=== PATIENT | male | born 1950 | race Caucasian/White ===

== ENCOUNTER 2016-07-16 02:29 | Inpatient (IN) | payer MEDICARE, OTHER ==
[~2016-07-16] VITALS: Ht 170.2 cm; Wt 67.6 kg
[~2016-07-16 02:29] MED LIST: CETIRIZINE HCL10 MG PO; COMBIVENT0.074 GM/I INH; ISOSORBIDE MONO30 MG PO; LANTUS100 UNIT/1 SC; NICOTINE PATCH1 EAC1 TD; PLAVIX 75 MG TA75 MG PO; SYMBICORT 160-1 INHA INH
[2016-07-16 03:00] LABS: HEMOGLOBIN 15.4 gm/dl (14.0-17.5); RED BLOOD COUNT 5.49 M/UL (4.20-5.50); WHITE BLOOD COUNT 17.6 K/UL (4.5-11.0)
[2016-07-16 03:51] LABS: BUN/CREATININE RATIO 28 (0-10)
[2016-07-16] MEDS ORDERED: JANUMET 50-1,01 EACH PO (10:43)
[2016-07-16] MEDS ORDERED: ADULT LOW DOSE81 MG PO (10:45)
[2016-07-16] MEDS ORDERED: LOPRESSOR 25 MG25 MG PO (10:47)
[2016-07-16] MEDS ORDERED: LISINOPRIL10 MG PO (10:47)
[2016-07-16] MEDS ORDERED: PANTOPRAZOLE SO40 MG PO (10:51)
[2016-07-16] MEDS ORDERED: SIMVASTATIN10 MG PO (10:56)
[2016-07-16] MEDS ORDERED: SPIRIVA18 MCG INH (11:58)
[2016-07-17 05:19] LABS: HEMOGLOBIN 14.3 gm/dl (14.0-17.5); RED BLOOD COUNT 5.15 M/UL (4.20-5.50)
[2016-07-17 05:20] LABS: WHITE BLOOD COUNT 23.5 K/UL (4.5-11.0)
[2016-07-17 05:41] LABS: BUN/CREATININE RATIO 53 (0-10)
[2016-07-18 04:34] LABS: HEMOGLOBIN 13.8 gm/dl (14.0-17.5); RED BLOOD COUNT 4.94 M/UL (4.20-5.50); WHITE BLOOD COUNT 23.5 K/UL (4.5-11.0)
[2016-07-18 05:12] LABS: BUN/CREATININE RATIO 84 (0-10)
[2016-07-19 07:51] LABS: HEMOGLOBIN 13.2 gm/dl (14.0-17.5); RED BLOOD COUNT 4.75 M/UL (4.20-5.50)
[2016-07-19 07:52] LABS: WHITE BLOOD COUNT 15.6 K/UL (4.5-11.0)
[2016-07-19 08:10] LABS: BUN/CREATININE RATIO 62 (0-10)
[2016-07-20 04:16] LABS: HEMOGLOBIN 14.2 gm/dl (14.0-17.5); RED BLOOD COUNT 5.12 M/UL (4.20-5.50)
[2016-07-20 04:19] LABS: WHITE BLOOD COUNT 7.8 K/UL (4.5-11.0)
[2016-07-20 04:37] LABS: BUN/CREATININE RATIO 56 (0-10)
[2016-07-20 09:34] LABS: LDH, BODY FLUID 91 U/L; TOTAL PROTEIN, BODY FLUID 1.4 gm/dL
[2016-07-20 10:05] LABS: BODY FLUID SOURCE PLEURAL
[2016-07-21 04:57] LABS: HEMOGLOBIN 13.3 gm/dl (14.0-17.5); RED BLOOD COUNT 4.92 M/UL (4.20-5.50); WHITE BLOOD COUNT 8.6 K/UL (4.5-11.0)
[2016-07-21 05:23] LABS: BUN/CREATININE RATIO 48 (0-10)
[2016-07-22 03:46] LABS: HEMOGLOBIN 13.1 gm/dl (14.0-17.5); RED BLOOD COUNT 4.71 M/UL (4.20-5.50)
[2016-07-22 03:49] LABS: WHITE BLOOD COUNT 11.4 K/UL (4.5-11.0)
[2016-07-22 04:28] LABS: BUN/CREATININE RATIO 40 (0-10)
[2016-07-23 03:43] LABS: HEMOGLOBIN 13.2 gm/dl (14.0-17.5); RED BLOOD COUNT 4.83 M/UL (4.20-5.50); WHITE BLOOD COUNT 9.1 K/UL (4.5-11.0)
[2016-07-23 04:00] LABS: BUN/CREATININE RATIO 33 (0-10)
[2016-07-23] MEDS ORDERED: LEVAQUIN750 MG PO (10:03)
== END 2016-07-23 10:25 | disposition home or self-care (01) | DRG 871 ==
LOC: ER1 02:29 → CCU 04:22 → ZEROF 04:22 → PROG CARE 12:12 → CCU 07-17 20:11
PROVIDERS: Family Medicine; Hospitalist; Internal Medicine; Internal Medicine Pulmonary Disease; ADMIT Internal Medicine
PROC: 5A1945Z Respiratory Ventilation, 24-96 Consecutive Hours (ICD-10-PCS; principal; 2016-07-17)
PROC: 0BH17EZ Insertion of Endotracheal Airway into Trachea, Via Natural or Artificial Opening (ICD-10-PCS; 2016-07-17)
PROC: 0BJ08ZZ Inspection of Tracheobronchial Tree, Via Natural or Artificial Opening Endoscopic (ICD-10-PCS; 2016-07-20)
PROC: 0W9B3ZZ Drainage of Left Pleural Cavity, Percutaneous Approach (ICD-10-PCS; 2016-07-20)
DX: A41.9 Sepsis, unspecified organism (principal); J18.9 Pneumonia, unspecified organism; J96.22 Acute and chronic respiratory failure with hypercapnia; J96.21 Acute and chronic respiratory failure with hypoxia; R65.21 Severe sepsis with septic shock; J44.0 Chronic obstructive pulmonary disease with (acute) lower respiratory infection; J44.1 Chronic obstructive pulmonary disease with (acute) exacerbation; J90 Pleural effusion, not elsewhere classified; I25.10 Atherosclerotic heart disease of native coronary artery without angina pectoris; F15.10 Other stimulant abuse, uncomplicated; I10 Essential (primary) hypertension; E78.5 Hyperlipidemia, unspecified; K21.9 Gastro-esophageal reflux disease without esophagitis; E11.9 Type 2 diabetes mellitus without complications; F17.210 Nicotine dependence, cigarettes, uncomplicated; T17.990A Other foreign object in respiratory tract, part unspecified in causing asphyxiation, initial encounter; R39.2 Extrarenal uremia; E87.6 Hypokalemia; Z95.5 Presence of coronary angioplasty implant and graft; Z99.81 Dependence on supplemental oxygen; Z86.19 Personal history of other infectious and parasitic diseases; Z88.8 Allergy status to other drugs, medicaments and biological substances; Z79.82 Long term (current) use of aspirin; Z79.4 Long term (current) use of insulin; Z82.49 Family history of ischemic heart disease and other diseases of the circulatory system; Z80.9 Family history of malignant neoplasm, unspecified
CPT/HCPCS: 31500; 36415; 36600; 70450; 71010; 71020; 80048; 80053; 80307; 81001; 82550; 82553; 82803; 82945; 82962; 83605; 83615; 83735; 83874; 83880; 84132; 84155; 84157; 84484; 85025; 85027; 86140; 87040; 87070; 87081; 87205; 87278; 89051; 93005; 94002; 94003; 94640; 94664; 96361; 96365; 96375; 99285; A4628; J0330; J1650; J1817; J1956; J2060; J2543; J2920; J2930; J7030; J7040; J7050